=== PATIENT | male | born 1980 | race Hispanic/Latino ===

== ENCOUNTER → 2017-11-26 | Outpatient (CLI) | payer OTHER ==
[~2017-11-26] MED LIST: ASPI-1197 PO; CYCL10TA7 PO; DICL75TA5 PO; DICY10CA13 PO; DOCU240C25 PO; DULO20CA17 PO; GABA-529 PO; METO50TA18 PO; SILD100T PO; SIME80TA12 PO
== END | disposition home or self-care (01) ==
LOC: RAH 14:10
PROVIDERS: ATTEND Nurse Practitioner Family
DX: M25.571 Pain in right ankle and joints of right foot (principal); M25.572 Pain in left ankle and joints of left foot; K21.9 Gastro-esophageal reflux disease without esophagitis
CPT/HCPCS: 73721

== ENCOUNTER 2018-04-18 09:55 | Day surgery (SDC) | payer OTHER ==
[2018-04-17 15:47] VITALS: BP 139/87
[2018-04-17 15:56] LABS: HEMATOCRIT 46.8 % (42-54); LYMPHOCYTES % (AUTO) 30.5 % (21.0-51.0); MEAN CORPUSCULAR HEMOGLOBIN 27.6 pg (27.0-33.0); MEAN CORPUSCULAR HGB CONC 33.2 g/dL (32.0-36.0); MEAN CORPUSCULAR VOLUME 83.2 fL (79-99); MONOCYTES % (AUTO) 9.1 % (3.0-13.0); NEUTROPHILS % (AUTO) 54.4 % (40.0-77.0); NUCLEATED RED BLOOD CELLS 0.1 % (0.0-0.19); PLATELET COUNT (AUTO) 250 K/uL (130-400); RED BLOOD CELL COUNT(AUTO) 5.63 MIL/uL (4.50-6.20); RED CELL DISTRIBUTION WIDTH 13.4 % (11.0-15.5)
[2018-04-17 16:04] LABS: CREATININE 0.9 mg/dL (0.5-1.5); POTASSIUM 4.9 mmol/L (3.5-5.1)
[~2018-04-18] VITALS: Ht 175.3 cm; Wt 85.4 kg
[2018-04-18] VITALS (10 sets, daily range): BP systolic 111–126; BP diastolic 62–84
[~2018-04-18 09:55] MED LIST changes: +AMLO5TAB7 PO; +CEFAZOLIN SODIUM 1 GM VIAL IVP SCH; +CHOL100018 PO; +DESI25TA16 PO; -DICL75TA5 PO; -DOCU240C25 PO; -DULO20CA17 PO; +FISH1CAP49 PO; +GABA-318 PO; -GABA-529 PO; +GABA-531 PO; +HYDR-4060 PO; +NAPR-1023 PO; +PANT40TA25 PO; +POLYETHYLENE GLY PO; -SILD100T PO; -SIME80TA12 PO; +SUMA50TA17 PO; +TOPI100T37 PO
[2018-04-18] MEDS ORDERED: EPINEPHRINE 1 MG/ML 30ML VIAL IJ ONE (10:35)
[2018-04-18] MEDS ORDERED: LACTATED RINGERS 1000ML 1,000 ML IV ONE (12:03)
[2018-04-18] MEDS ORDERED: SUCCINYLCHOLINE 200MG/10ML SYR ONE (13:53)
[2018-04-18] MEDS ORDERED: DEXAMETHASONE SOD PHOSPHATE 10MG/ML 1ML VIAL ONE (13:53)
[2018-04-18] MEDS ORDERED: ONDANSETRON HCL 4 MG/2 ML VIAL ONE (13:53)
[2018-04-18] MEDS ORDERED: LIDOCAINE PF 2% 5ML ABBOJECT ONE (13:53)
[2018-04-18] MEDS ORDERED: FENTANYL CITRATE PF 50 MCG/1 ML 2ML VIAL ONE ×2 (13:54→15:35)
[2018-04-18] MEDS ORDERED: NEOSTIGMINE 5MG/5ML SYR IV ONE (13:54)
[2018-04-18] MEDS ORDERED: MIDAZOLAM HCL 1 MG/ML 2ML VIAL ONE (13:54)
[2018-04-18] MEDS ORDERED: PROPOFOL 10 MG/ML 20ML VIAL IV ONE (13:54)
[2018-04-18] MEDS ORDERED: ROCURONIUM 10MG/1ML SYR 10 MG/ML ML ONE (13:54)
[2018-04-18] MEDS ORDERED: HYDR-4457 PO (16:53)
[2018-04-18] MEDS ORDERED: CEPH500B PO (16:53)
[2018-04-18] MEDS ORDERED: MEPERIDINE-PF 25 MG/ML SYG ONE ×2 (17:21→17:32)
[2018-04-18] MEDS ORDERED: PROMETHAZINE HCL 25 MG/ML 1ML AMPULE IM ONE (17:32)
== END 2018-04-18 18:47 | disposition home or self-care (01) ==
LOC: DAH 09:55
PROVIDERS: ATTEND Orthopaedic Surgery
DX: S43.402A Unspecified sprain of left shoulder joint, initial encounter (principal); X58.XXXA Exposure to other specified factors, initial encounter; Y93.9 Activity, unspecified; Y92.89 Other specified places as the place of occurrence of the external cause; Y99.9 Unspecified external cause status; Z79.899 Other long term (current) drug therapy; G89.29 Other chronic pain; I73.9 Peripheral vascular disease, unspecified; G62.9 Polyneuropathy, unspecified; Z98.890 Other specified postprocedural states; E78.5 Hyperlipidemia, unspecified; R00.1 Bradycardia, unspecified; I25.10 Atherosclerotic heart disease of native coronary artery without angina pectoris; F43.10 Post-traumatic stress disorder, unspecified
CPT/HCPCS: 29822; 29824; 29826; 36415; 80048; 85025; A4649 ×4; A4930; A6204; J0171; J0330; J0690; J1100; J2001; J2175 ×2; J2250; J2405; J2550; J2704; J2710; J3010 ×2; J7030; J7120

== ENCOUNTER → 2022-03-21 | Outpatient (CLI) | payer OTHER ==
[~2022-03-21] MED LIST changes: +AMLO-257 PO; -AMLO5TAB7 PO; -CEFAZOLIN SODIUM 1 GM VIAL IVP SCH; +CEPH500B PO; +CYCL-309 PO; -CYCL10TA7 PO; -GABA-318 PO; +GABA600T10 PO; -HYDR-4060 PO; +HYDR-4457 PO; -PANT40TA25 PO; +PANT40TA54 PO
== END | disposition home or self-care (01) ==
LOC: OIH 07:52
PROVIDERS: ATTEND Internal Medicine Cardiovascular Disease
DX: I37.1 Nonrheumatic pulmonary valve insufficiency (principal); E78.5 Hyperlipidemia, unspecified
CPT/HCPCS: 93306

== ENCOUNTER → 2023-06-26 | Outpatient (CLI) | payer OTHER ==
[~2023-06-26] MED LIST changes: +ALBUTEROL 0.083% 2.5 MG/3 ML INH IH ONE; +DICY-20 PO; -DICY10CA13 PO
== END | disposition home or self-care (01) ==
LOC: RESP 12:33
PROVIDERS: ATTEND Internal Medicine Cardiovascular Disease
DX: R06.00 Dyspnea, unspecified (principal); R06.02 Shortness of breath
CPT/HCPCS: 94060; 94727; 94729